=== PATIENT | female | born 1965 | race Two or more races ===

== ENCOUNTER 2018-05-15 03:06 | Emergency (ER) | END 2018-05-15 05:54 | disposition home or self-care (01) | DX: F10.129 Alcohol abuse with intoxication, unspecified (principal); R56.9 Unspecified convulsions; I10 Essential (primary) hypertension; J45.909 Unspecified asthma, uncomplicated; F20.9 Schizophrenia, unspecified; F31.9 Bipolar disorder, unspecified; F10.10 Alcohol abuse, uncomplicated; F17.200 Nicotine dependence, unspecified, uncomplicated; Y90.9 Presence of alcohol in blood, level not specified; Z88.8 Allergy status to other drugs, medicaments and biological substances; Z59.0 Homelessness; Z88.6 Allergy status to analgesic agent ==